=== PATIENT | female | born 1935 | race Caucasian/White ===

== ENCOUNTER 2020-03-16 20:53 | Emergency (ER) | payer OTHER ==
[~2020-03-16] VITALS: Ht 162.5 cm; Wt 63.5 kg
[2020-03-16 22:09] LABS: BASO # 0.1 10*3/uL (0.0-0.1); BASO % 0.5 % (0.0-1.0); EOS # 0.1 10*3/uL (0.0-0.4); EOS % 1.2 % (1.0-4.0); HEMATOCRIT 51.2 % (37.0-47.0); LYMPH # 1.2 10*3/uL (1.3-4.4); MEAN CELL VOLUME 98.8 fl (81.0-99.0); MEAN CORPUSCULAR HGB 32.2 pg (27.0-31.0); MEAN CORPUSCULAR HGB CONC 32.6 g/dl (33.0-37.0); MEAN PLATELET VOLUME 9.8 fl (9.6-12.3); MONO % 10.3 % (3.0-9.0); NEUT # 7.4 10*3/uL (2.3-7.9); NEUT % 75.3 % (47.0-73.0); PLATELET COUNT AUTOMATED 280 10*3/uL (130-400); RED BLOOD COUNT 5.18 10*6/uL (4.10-5.10); RED CELL DISTRI WIDTH 13.7 % (0-14.5); WHITE BLOOD COUNT 9.9 10*3/uL (4.8-10.8)
[2020-03-16 22:26] LABS: BUN 18 mg/dl (7-24); CHLORIDE 108 mmol/L (98-107); CREATININE 0.76 mg/dL (0.55-1.02); POTASSIUM 3.8 mmol/L (3.5-5.1); SODIUM 139 mmol/L (136-145)
[2020-03-16 22:44] LABS: BILIRUBIN Negative (Negative); BLOOD Negative (Negative); CLARITY Clear (Clear); COLOR Yellow (Yellow); GLUCOSE Negative (Negative); KETONE Negative (Negative); LEUKO ESTERASE 1+ (Negative); NITRITE Negative (Negative); PH 5.5 (4.5-8.0); SPECIFIC GRAVITY 1.015 (1.001-1.030)
[2020-03-16 22:54] LABS: BACTERIA TRACE
== END 2020-03-16 23:17 | disposition home or self-care (01) ==
LOC: ED 20:53
PROVIDERS: Internal Medicine
DX: I63.9 Cerebral infarction, unspecified (principal)

== ENCOUNTER → 2021-12-08 | Outpatient (CLI) | payer OTHER ==
[2021-12-08 13:54] LABS: BUN 8 mg/dl (7-24); CHLORIDE 100 mmol/L (98-107); CREATININE 0.62 mg/dL (0.55-1.02); POTASSIUM 3.9 mmol/L (3.5-5.1); SODIUM 135 mmol/L (136-145)
== END | disposition home or self-care (01) ==
LOC: LAB 13:21
PROVIDERS: ATTEND Internal Medicine
DX: I10 Essential (primary) hypertension (principal)

== ENCOUNTER 2022-04-26 08:58 | Emergency (ER) | payer OTHER ==
[~2022-04-26] VITALS: Ht 162.5 cm; Wt 73.0 kg
== END 2022-04-26 10:45 | disposition home or self-care (01) ==
LOC: ED 08:58
DX: R60.0 Localized edema (principal); Z88.8 Allergy status to other drugs, medicaments and biological substances

== ENCOUNTER 2023-07-29 12:34 | Inpatient (IN) | payer OTHER ==
[~2023-07-29] VITALS: Ht 162.5 cm; Wt 62.9 kg
[~2023-07-29 12:34] MED LIST: ASPIRIN81 M1 PO; CELEXA20 MG PO; DIOVAN160 M2 PO; DIOVAN320 MG PO; FAMOTIDINE 1010 MG PO; Ipratropium Brom3 ML NEB; K-TAB10 MEQ PO; MUCUS RELIEF600 MG PO; NEURONTIN300 MG PO; NICODERM CQ1 EAC2 TD; NICODERM T; NORVASC5 MG PO; OMNICEF300 MG PO; PANTOPRAZOLE SO40 MG PO; PHARMASSURE V500 MCG PO; PREDNISONE10 MG PO; SYMB160 INH; SYNTHROID,LEV112 MCG PO; SYNTHROID,LEV125 MCG PO; VENT7GM INH; VIBRAMYCIN HYC100 MG PO; VITAMIN D350 MCG PO; WELLBUTRIN XL150 MG PO; XYZAL5 M1 PO
[2023-07-29 12:56] VITALS: BP 179/128
[2023-07-29] MEDS ORDERED: Albuterol Sulf/Ipratropium 3 ML VIAL NEB ONE (13:00)
[2023-07-29] MEDS ORDERED: Ceftriaxone Sodium 1 GM/10 ML SYR IV ONE (13:15)
[2023-07-29] MEDS ORDERED: AZITHROMYCIN 250 ML IV ONE (13:15)
[2023-07-29 14:05] LABS: HEMATOCRIT 50.3 % (37.0-47.0); MEAN CELL VOLUME 95.4 fl (81.0-99.0); MEAN CORPUSCULAR HGB 29.8 pg (27.0-31.0); MEAN CORPUSCULAR HGB CONC 31.2 g/dl (33.0-37.0); MEAN PLATELET VOLUME 10.4 fl (9.6-12.3); PLATELET COUNT AUTOMATED 356 10*3/uL (130-400); RED BLOOD COUNT 5.27 10*6/uL (4.10-5.10); RED CELL DISTRI WIDTH 16.2 % (0-14.5); WHITE BLOOD COUNT 12.3 10*3/uL (4.8-10.8)
[2023-07-29 14:06] LABS: MANUAL DIFF REFLEX YES
[2023-07-29 14:16] LABS: ACT PARTIAL THROMBO TIME 29.3 SECONDS (20.0-32.1)
[2023-07-29 14:33] LABS: ALKALINE PHOSPHATASE 63 U/L (46-116); BUN 11 mg/dl (9-23); CHLORIDE 105 mmol/L (98-107); POTASSIUM 3.9 mmol/L (3.4-5.1); SGPT/ALT 9 U/L (5-49); TOTAL PROTEIN 6.8 gm/dL (6.0-8.0)
[2023-07-29] MEDS ORDERED: SODIUM CHLORIDE 0.9% 1,000 ML IV SCH (14:50)
[2023-07-29 15:00] LABS: PLATELET SUFFICIENCY NORMAL (NORMAL); TOTAL CELLS COUNTED 100 #CELLS
[2023-07-29 15:01] LABS: OVALOCYTES FEW
[2023-07-29] MEDS ORDERED: BARIUM SULFATE 60% 355 ML BOT DIAG SCH (16:35)
[2023-07-29] MEDS ORDERED: BARIUM SULFATE 98% 340 GM BOT DIAG SCH (16:35)
[2023-07-29] MEDS ORDERED: Labetalol Hydrochloride 20 MG/4 ML SYR IV ONE (16:50)
[2023-07-29] MEDS ORDERED: SODIUM CHLORIDE 0.9% 800 ML IV ONE (16:55)
[2023-07-29] MEDS ORDERED: BISACODYL 10 MG SUPP R PRN (17:00)
[2023-07-29] MEDS ORDERED: ACETAMINOPHEN 650 MG SUPP R PRN (17:00)
[2023-07-29] MEDS ORDERED: Magnesium Hydroxide 30 ML UDC PO PRN (17:00)
[2023-07-29] MEDS ORDERED: BISACODYL 5 MG TAB PO PRN (17:00)
[2023-07-29] MEDS ORDERED: Acetaminophen/Hydrocodone 5 MG/325 MG TABLET PO PRN (17:00)
[2023-07-29] MEDS ORDERED: ACETAMINOPHEN 325 MG TAB PO PRN (17:00)
[2023-07-29 17:09] VITALS: BP 134/74
[2023-07-29] MEDS ORDERED: TRELEGY ELLIPT1 EACH INH (17:17)
[2023-07-29] MEDS ORDERED: K-TAB20 MEQ PO (17:20)
[2023-07-29] MEDS ORDERED: Albuterol Sulf/Ipratropium 3 ML VIAL NEB PRN (17:45)
[2023-07-29 19:41] VITALS: BP 155/80
[2023-07-29] MEDS ORDERED: methylPREDNISolone sod succ 40 MG VIAL IV SCH (22:00)
[2023-07-29] MEDS ORDERED: GUAIFENESIN 600 MG TAB ER PO SCH (22:00)
[2023-07-29 22:31] VITALS: BP 132/70
[2023-07-30 00:36] VITALS: BP 128/78
[2023-07-30 04:34] VITALS: BP 149/73
[2023-07-30 04:34] LABS: BILIRUBIN Negative (Negative); BLOOD Negative (Negative); CLARITY Clear (Clear); COLOR Yellow (Yellow); GLUCOSE Negative (Negative); KETONE Negative (Negative); LEUKO ESTERASE Negative (Negative); NITRITE Negative (Negative); PH 6.5 (4.5-8.0); SPECIFIC GRAVITY 1.015 (1.001-1.030); UROBILINOGEN 0.2 E.U./dl (0.0-1.0)
[2023-07-30 05:39] LABS: ALKALINE PHOSPHATASE 49 U/L (46-116); BUN 12 mg/dl (9-23); CHLORIDE 106 mmol/L (98-107); CHOLESTEROL 134 mg/dL (<200); LDL CHOLESTEROL 65 mg/dL (9-159); POTASSIUM 3.7 mmol/L (3.4-5.1); SGPT/ALT 7 U/L (5-49); TOTAL PROTEIN 5.7 gm/dL (6.0-8.0); TRIGLYCERIDES 98 mg/dl (<150)
[2023-07-30 05:57] LABS: HEMATOCRIT 42.4 % (37.0-47.0); LYMPH # 0.8 10*3/uL (1.3-4.4); LYMPH % 8.2 % (27.0-41.0); MEAN CELL VOLUME 95.5 fl (81.0-99.0); MEAN CORPUSCULAR HGB 30.4 pg (27.0-31.0); MEAN CORPUSCULAR HGB CONC 31.8 g/dl (33.0-37.0); MEAN PLATELET VOLUME 11.1 fl (9.6-12.3); MONO # 0.4 10*3/uL (0.1-1.0); MONO % 4.3 % (3.0-9.0); NEUT # 8.7 10*3/uL (2.3-7.9); PLATELET COUNT AUTOMATED 330 10*3/uL (130-400); RED BLOOD COUNT 4.44 10*6/uL (4.10-5.10); RED CELL DISTRI WIDTH 16.4 % (0-14.5)
[2023-07-30 06:27] LABS: ACT PARTIAL THROMBO TIME 28.2 SECONDS (20.0-32.1)
[2023-07-30 06:48] LABS: VITAMIN D, 25-HYDROXY 65.3 ng/mL (30-100)
[2023-07-30 08:23] VITALS: BP 152/70
[2023-07-30] MEDS ORDERED: Enoxaparin Sodium 40 MG/0.4 ML SYR SC SCH ×2 (10:00→13:59)
[2023-07-30 13:00] VITALS: BP 130/68
[2023-07-30] MEDS ORDERED: AZITHROMYCIN 250 ML IV SCH (13:00)
[2023-07-30] MEDS ORDERED: methylPREDNISolone sod succ 40 MG VIAL IV SCH (14:00)
[2023-07-30] MEDS ORDERED: GUAIFENESIN 600 MG TAB ER PO SCH (14:00)
[2023-07-30] MEDS ORDERED: Ceftriaxone Sodium 1 GM in SYRINGE INFUSION 10 ML IV SCH (14:00)
[2023-07-30 16:00] VITALS: BP 133/71
[2023-07-30 20:00] VITALS: BP 149/74
[2023-07-31] VITALS: BP 174/82
[2023-07-31 00:06] VITALS: BP 168/90
[2023-07-31] MEDS ORDERED: VALSARTAN 320 MG TAB PO ONE (00:10)
[2023-07-31] MEDS ORDERED: amLODIPine besylate 5 MG TAB PO ONE (00:10)
[2023-07-31 06:58] LABS: BASO % 0.2 % (0.0-1.0); HEMATOCRIT 45.4 % (37.0-47.0); LYMPH # 0.9 10*3/uL (1.3-4.4); MEAN CELL VOLUME 93.6 fl (81.0-99.0); MEAN CORPUSCULAR HGB 29.9 pg (27.0-31.0); MEAN CORPUSCULAR HGB CONC 31.9 g/dl (33.0-37.0); MEAN PLATELET VOLUME 10.7 fl (9.6-12.3); MONO # 0.9 10*3/uL (0.1-1.0); MONO % 7.4 % (3.0-9.0); NEUT # 9.7 10*3/uL (2.3-7.9); NEUT % 83.7 % (47.0-73.0); PLATELET COUNT AUTOMATED 338 10*3/uL (130-400); RED BLOOD COUNT 4.85 10*6/uL (4.10-5.10); RED CELL DISTRI WIDTH 16.4 % (0-14.5); WHITE BLOOD COUNT 11.6 10*3/uL (4.8-10.8)
[2023-07-31 07:23] LABS: BUN 11 mg/dl (9-23); CHLORIDE 103 mmol/L (98-107); POTASSIUM 3.9 mmol/L (3.4-5.1)
[2023-07-31 08:00] VITALS: BP 138/80
[2023-07-31] MEDS ORDERED: CITALOPRAM 20 MG TAB PO SCH ×2 (10:00→22:00)
[2023-07-31] MEDS ORDERED: Pantoprazole Sodium 40 MG TAB PO SCH (10:00)
[2023-07-31] MEDS ORDERED: Losartan Potassium 100 MG TABLET PO SCH (10:00)
[2023-07-31] MEDS ORDERED: buPROPion XL 150 MG TAB PO SCH (10:00)
[2023-07-31] MEDS ORDERED: Levothyroxine Sodium 112 MCG TAB PO SCH (10:00)
[2023-07-31] MEDS ORDERED: Albuterol Sulf/Ipratropium 3 ML VIAL NEB SCH ×2 (10:35→17:45)
[2023-07-31] MEDS ORDERED: BUDESONIDE 0.5 MG AMP NEB SCH (11:00)
[2023-07-31 12:00] VITALS: BP 130/84
[2023-07-31 15:44] VITALS: BP 126/78
[2023-07-31] MEDS ORDERED: FAMOTIDINE 20 MG TAB PO SCH (18:00)
[2023-07-31 20:00] VITALS: BP 117/66
[2023-07-31] MEDS ORDERED: ASPIRIN ENTERIC COATED 81 MG TAB PO SCH (22:00)
[2023-07-31] MEDS ORDERED: amLODIPine besylate 5 MG TAB PO SCH (22:00)
[2023-08-01] VITALS: BP 134/73
[2023-08-01] MEDS ORDERED: Levothyroxine Sodium 112 MCG TAB PO SCH (06:00)
[2023-08-01] MEDS ORDERED: Pantoprazole Sodium 40 MG TAB PO SCH (06:00)
[2023-08-01 06:19] LABS: BASO % 0.3 % (0.0-1.0); MEAN CELL VOLUME 93.5 fl (81.0-99.0); MEAN CORPUSCULAR HGB 30.3 pg (27.0-31.0); MEAN CORPUSCULAR HGB CONC 32.4 g/dl (33.0-37.0); MEAN PLATELET VOLUME 10.1 fl (9.6-12.3); MONO % 9.1 % (3.0-9.0); NEUT # 9.1 10*3/uL (2.3-7.9); NEUT % 80.4 % (47.0-73.0); PLATELET COUNT AUTOMATED 316 10*3/uL (130-400); RED BLOOD COUNT 4.92 10*6/uL (4.10-5.10); RED CELL DISTRI WIDTH 16.4 % (0-14.5); WHITE BLOOD COUNT 11.3 10*3/uL (4.8-10.8)
[2023-08-01 06:36] LABS: BUN 13 mg/dl (9-23); CHLORIDE 104 mmol/L (98-107); POTASSIUM 3.9 mmol/L (3.4-5.1)
[2023-08-01 08:00] VITALS: BP 159/75
[2023-08-01] MEDS ORDERED: TRELEGY ELLIPTA INH SCH (10:00)
[2023-08-01] MEDS ORDERED: IOHEXOL 300 MG/ML 100 ML VIAL IV ONE (11:55)
[2023-08-01 12:00] VITALS: BP 131/63
[2023-08-01 16:00] VITALS: BP 139/82
[2023-08-01 20:00] VITALS: BP 152/83
[2023-08-02] VITALS: BP 143/82
[2023-08-02 05:06] LABS: BUN 14 mg/dl (9-23); CHLORIDE 102 mmol/L (98-107); POTASSIUM 3.9 mmol/L (3.4-5.1)
[2023-08-02 06:13] LABS: BASO % 0.2 % (0.0-1.0); HEMATOCRIT 48.2 % (37.0-47.0); LYMPH # 0.8 10*3/uL (1.3-4.4); LYMPH % 6.2 % (27.0-41.0); MEAN CELL VOLUME 94.7 fl (81.0-99.0); MEAN CORPUSCULAR HGB 30.3 pg (27.0-31.0); MEAN PLATELET VOLUME 10.9 fl (9.6-12.3); MONO # 0.7 10*3/uL (0.1-1.0); MONO % 5.8 % (3.0-9.0); NEUT # 10.9 10*3/uL (2.3-7.9); NEUT % 87.1 % (47.0-73.0); PLATELET COUNT AUTOMATED 349 10*3/uL (130-400); RED BLOOD COUNT 5.09 10*6/uL (4.10-5.10); RED CELL DISTRI WIDTH 16.2 % (0-14.5); WHITE BLOOD COUNT 12.6 10*3/uL (4.8-10.8)
[2023-08-02 08:00] VITALS: BP 147/73
[2023-08-02 12:00] VITALS: BP 151/95
[2023-08-02] MEDS ORDERED: MUCUS RELIEF600 MG PO (12:10)
[2023-08-02] MEDS ORDERED: PREDNISONE10 MG PO (12:10)
[2023-08-02] MEDS ORDERED: DOXYCYCLINE HY100 M3 PO (12:10)
== END 2023-08-02 13:15 | disposition home or self-care (01) | DRG 871 ==
LOC: ED 12:34 → 5E 16:00 → EDHOLD 16:00 → 5E 07-30 10:47
PROVIDERS: Family Medicine; Internal Medicine; Student in an Organized Health Care Education/Training Program; ADMIT Internal Medicine; ATTEND Internal Medicine
DX: A41.9 Sepsis, unspecified organism (principal); J18.9 Pneumonia, unspecified organism; J96.01 Acute respiratory failure with hypoxia; J44.0 Chronic obstructive pulmonary disease with (acute) lower respiratory infection; Z66 Do not resuscitate; Z96.653 Presence of artificial knee joint, bilateral; I10 Essential (primary) hypertension; I16.0 Hypertensive urgency; D75.1 Secondary polycythemia; R73.9 Hyperglycemia, unspecified; Z88.6 Allergy status to analgesic agent; Z90.49 Acquired absence of other specified parts of digestive tract; Z86.73 Personal history of transient ischemic attack (TIA), and cerebral infarction without residual deficits; Z87.11 Personal history of peptic ulcer disease; Z78.9 Other specified health status

== ENCOUNTER 2025-06-10 19:03 | Inpatient (IN) | payer OTHER ==
[~2025-06-10] VITALS: Ht 152.4 cm; Wt 55.3 kg
[~2025-06-10 19:03] MED LIST changes: +DOXYCYCLINE HY100 M3 PO; +K-TAB20 MEQ PO; +TRELEGY ELLIPT1 EACH INH
[2025-06-10 20:45] VITALS: BP 159/71
[2025-06-10] MEDS ORDERED: GABAPENTIN600 MG PO (21:27)
[2025-06-10] MEDS ORDERED: PROTONIX40 MG PO (21:28)
[2025-06-10] MEDS ORDERED: PEPCID20 MG PO (21:29)
[2025-06-10] MEDS ORDERED: NICODERM CQ1 EAC2 TD (21:29)
[2025-06-10] MEDS ORDERED: HYDROXYZINE PAM25 M1 PO (21:30)
[2025-06-10] MEDS ORDERED: MEMANTINE HCL10 MG PO (21:30)
[2025-06-10] MEDS ORDERED: ACETAMINOPHEN 650 MG SUPP R PRN (21:50)
[2025-06-10] MEDS ORDERED: ACETAMINOPHEN 325 MG TAB PO PRN (21:50)
[2025-06-10] MEDS ORDERED: Ondansetron Hydrochloride 4 MG/2 ML VIAL IV PRN (21:50)
[2025-06-10] MEDS ORDERED: BISACODYL 5 MG TAB PO PRN (21:50)
[2025-06-10] MEDS ORDERED: BISACODYL 10 MG SUPP R PRN (21:50)
[2025-06-10 22:45] LABS: BASO # 0.0 10*3/uL (0.0-0.1); BASO % 0.2 % (0.0-1.0); EOS # 0.0 10*3/uL (0.0-0.4); EOS % 0.2 % (1.0-4.0); MEAN CELL VOLUME 94.2 fl (81.0-99.0); MEAN CORPUSCULAR HGB 32.3 pg (27.0-31.0); MEAN PLATELET VOLUME 9.8 fl (9.6-12.3); MONO # 0.7 10*3/uL (0.1-1.0); MONO % 7.9 % (3.0-9.0); NEUT # 7.2 10*3/uL (2.3-7.9); NEUT % 85.3 % (47.0-73.0); NUCLEATED RED BLOOD CELL 0.0 % (0.0-0.0); NUCLEATED RED BLOOD CELL 0.0 10*3/uL (0.0-0.0); PLATELET COUNT AUTOMATED 256 10*3/uL (130-400); RED CELL DISTRI WIDTH 13.4 % (0-14.5)
[2025-06-10 23:08] LABS: BUN 9 mg/dl (9-23); SGPT/ALT 19 U/L (5-49)
[2025-06-10] MEDS ORDERED: Albuterol Sulf/Ipratropium 3 ML VIAL NEB SCH (23:50)
[2025-06-11] VITALS: BP 126/49
[2025-06-11 06:27] LABS: BUN 9 mg/dl (9-23); FREE T4 1.30 ng/dl (0.89-1.76); LDL CHOLESTEROL 46 mg/dL (9-159); SGPT/ALT 10 U/L (5-49)
[2025-06-11 06:32] LABS: BASO # 0.0 10*3/uL (0.0-0.1); BASO % 0.2 % (0.0-1.0); EOS # 0.0 10*3/uL (0.0-0.4); EOS % 0.5 % (1.0-4.0); MEAN CELL VOLUME 95.3 fl (81.0-99.0); MEAN CORPUSCULAR HGB 30.9 pg (27.0-31.0); MEAN PLATELET VOLUME 10.7 fl (9.6-12.3); MONO # 0.8 10*3/uL (0.1-1.0); MONO % 13.3 % (3.0-9.0); NEUT # 4.4 10*3/uL (2.3-7.9); NEUT % 73.7 % (47.0-73.0); NUCLEATED RED BLOOD CELL 0.0 % (0.0-0.0); NUCLEATED RED BLOOD CELL 0.0 10*3/uL (0.0-0.0); PLATELET COUNT AUTOMATED 236 10*3/uL (130-400); RED CELL DISTRI WIDTH 13.4 % (0-14.5)
[2025-06-11] MEDS ORDERED: POTASSIUM CHLORIDE 10 MEQ TAB PO ONE (07:00)
[2025-06-11] MEDS ORDERED: POTASSIUM CHLORIDE 20 MEQ TAB PO ONE (07:00)
[2025-06-11 07:36] LABS: VITAMIN D, 25-HYDROXY 52.0 ng/mL (30-100)
[2025-06-11 08:00] VITALS: BP 190/63
[2025-06-11] MEDS ORDERED: CITALOPRAM 20 MG TAB PO SCH (10:00)
[2025-06-11] MEDS ORDERED: FAMOTIDINE 20 MG TAB PO SCH (10:00)
[2025-06-11] MEDS ORDERED: GABAPENTIN 600 MG TAB PO SCH (10:00)
[2025-06-11 12:00] VITALS: BP 116/54
[2025-06-11] MEDS ORDERED: Albuterol Sulf/Ipratropium 3 ML VIAL NEB PRN (12:50)
[2025-06-11 17:51] VITALS: BP 143/57
[2025-06-11] MEDS ORDERED: ACETAMINOPHEN 70 ML IV ONE (19:00)
[2025-06-11 20:00] VITALS: BP 152/60
[2025-06-11] MEDS ORDERED: ASPIRIN ENTERIC COATED 81 MG TAB PO SCH (22:00)
[2025-06-12] VITALS: BP 128/82
[2025-06-12 04:00] VITALS: BP 99/53
[2025-06-12 06:44] LABS: BASO # 0.0 10*3/uL (0.0-0.1); BASO % 0.2 % (0.0-1.0); EOS # 0.0 10*3/uL (0.0-0.4); EOS % 0.2 % (1.0-4.0); MEAN CELL VOLUME 93.3 fl (81.0-99.0); MEAN CORPUSCULAR HGB 30.7 pg (27.0-31.0); MEAN PLATELET VOLUME 10.5 fl (9.6-12.3); MONO # 1.1 10*3/uL (0.1-1.0); MONO % 13.4 % (3.0-9.0); NEUT # 5.9 10*3/uL (2.3-7.9); NEUT % 70.1 % (47.0-73.0); NUCLEATED RED BLOOD CELL 0.0 % (0.0-0.0); NUCLEATED RED BLOOD CELL 0.0 10*3/uL (0.0-0.0); PLATELET COUNT AUTOMATED 256 10*3/uL (130-400); RED CELL DISTRI WIDTH 13.7 % (0-14.5)
[2025-06-12 06:58] LABS: BUN 12 mg/dl (9-23)
[2025-06-12 08:00] VITALS: BP 145/54
[2025-06-12] MEDS ORDERED: POTASSIUM CHLORIDE 20 MEQ TAB PO ONE (08:00)
[2025-06-12 12:00] VITALS: BP 143/58
[2025-06-12] MEDS ORDERED: GABAPENTIN 600 MG TAB PO SCH (22:00)
== END 2025-06-12 16:15 | disposition home or self-care (01) | DRG 871 ==
LOC: 5E 19:03
PROVIDERS: Student in an Organized Health Care Education/Training Program; ADMIT Internal Medicine; ATTEND Internal Medicine
DX: A41.89 Other specified sepsis (principal); J96.01 Acute respiratory failure with hypoxia; E44.0 Moderate protein-calorie malnutrition; Z68.43 Body mass index [BMI] 50.0-59.9, adult; J10.1 Influenza due to other identified influenza virus with other respiratory manifestations; K27.9 Peptic ulcer, site unspecified, unspecified as acute or chronic, without hemorrhage or perforation; Z66 Do not resuscitate; Z20.822 Contact with and (suspected) exposure to COVID-19; J44.9 Chronic obstructive pulmonary disease, unspecified; I10 Essential (primary) hypertension; E87.6 Hypokalemia; E83.51 Hypocalcemia; R73.9 Hyperglycemia, unspecified; Z96.653 Presence of artificial knee joint, bilateral; Z86.73 Personal history of transient ischemic attack (TIA), and cerebral infarction without residual deficits; Z90.49 Acquired absence of other specified parts of digestive tract; Z87.891 Personal history of nicotine dependence; Z79.82 Long term (current) use of aspirin